=== PATIENT | female | born 1990 | race Caucasian/White ===

== ENCOUNTER 2017-03-13 23:29 | Emergency (ER) | payer OTHER ==
[~2017-03-13] VITALS: Ht 165.1 cm; Wt 78.9 kg
[2017-03-13 23:34] VITALS: BP 135/81; PULSE 98; RESP 18; TEMP 98.3; O2SAT 100
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
[2017-03-14] MEDS ORDERED: ZOFR4TAB3 SL (00:56)
== END 2017-03-14 01:11 | disposition home or self-care (01) ==
LOC: PHED 23:29
DX: S09.90XA Unspecified injury of head, initial encounter (principal); R11.0 Nausea; Z72.0 Tobacco use; V43.52XA Car driver injured in collision with other type car in traffic accident, initial encounter; Y93.89 Activity, other specified; Y92.410 Unspecified street and highway as the place of occurrence of the external cause; Y99.8 Other external cause status
CPT/HCPCS: 70450; 99284